=== PATIENT | female | born 1995 ===

== ENCOUNTER 2018-10-22 06:10 | Emergency (ER) | payer OTHER ==
--- NOTE | 2018-10-22 07:16 | ED PDOC ---
HPI: Abdomen Time Seen by Provider: 10/22/18 07:06 Chief Complaint (Nursing): Back Pain Chief Complaint (Provider): Back Pain History Per: Patient History/Exam Limitations: no limitations Onset/Duration Of Symptoms: Sudden Onset (x last night) Current Symptoms Are (Timing): Still Present Additional Complaint(s): 23 year old female presents to ED with left-sided flank pain associated with dysuria and nausea since last night. She denies any fever or chills. Of note, patient has pmHx of PCOS. PCP: none provided Past Medical History Reviewed: Historical Data, Nursing Documentation, Vital Signs Vital Signs: Last Vital Signs Temp 98.3 F 10/22/18 06:20 Pulse 85 10/22/18 06:20 Resp 18 10/22/18 06:20 BP 120/70 10/22/18 06:20 Pulse Ox 98 10/22/18 06:20 - Medical History Other PMH: polycystic ovary syndrome - Surgical History Surgical History: No Surg Hx - Family History Family History: States: Unknown Family Hx - Home Medications Home Medications: Ambulatory Orders Medication Instructions Recorded Naproxen [Naprosyn] 500 mg PO Q12H #20 tab 10/22/18 Sulfamethoxazole/Trimethoprim 1 tab PO BID #20 tab 10/22/18 [Bactrim DS 800 mg-160 mg] - Allergies Allergies/Adverse Reactions: Allergies Allergy/AdvReac Type Severity Reaction Status Date / Time Penicillins Allergy RASH Verified 10/22/18 06:20 Review of Systems ROS Statement: Except As Marked, All Systems Reviewed And Found Negative Constitutional: Negative for: Fever, Chills Gastrointestinal: Positive for: Nausea Genitourinary Female: Positive for: Dysuria Musculoskeletal: Positive for: Back Pain (left flank) Physical Exam - Reviewed Nursing Documentation Reviewed: Yes Vital Signs Reviewed: Yes - Physical Exam Appears: Positive for: No Acute Distress Head Exam: Positive for: ATRAUMATIC, NORMAL INSPECTION, NORMOCEPHALIC Skin: Positive for: Normal Color Eye Exam: Positive for: Normal appearance ENT: Positive for: Normal ENT Inspection Neck: Positive for: Normal Cardiovascular/Chest: Positive for: Regular Rate, Rhythm, Chest Non Tender Respiratory: Positive for: Normal Breath Sounds. Negative for: Respiratory Distress Gastrointestinal/Abdominal: Positive for: Normal Exam, Soft. Negative for: Tenderness, Mass Back: Positive for: Normal Inspection. Negative for: L CVA Tenderness, R CVA Tenderness Extremity: Positive for: Normal ROM Neurologic/Psych: Positive for: Alert, Oriented - ECG O2 Sat by Pulse Oximetry: 98 (RA) Pulse Ox Interpretation: Normal Medical Decision Making Medical Decision Making: Initial Impression: Left flank pain Initial Plan: Will obtain CT ABD/pelvis and urine. R/O kidney stone vs. UTI vs. pyelonephritis Time: 737 -- : (-) Time: 841 --CT ABD/pelvis FINDINGS: Images through lung bases appear clear. No definite radiodense urolithiasis or hydronephrosis is appreciated at either kidney. No definite perinephric reaction either. The bilateral kidneys appear normal in size and overall density. Ureters also appear normal in caliber. Urinary bladder is decompressed but smooth and thin walled. Further evaluation remaining abdominal pelvic viscera is limited due to lack of oral and intravenous contrast agents. There is no suspicious lesion appreciated in the liver or the spleen. No gross intrahepatic biliary dilatation identified. The stomach is collapsed. Gallbladder is mildly distended but otherwise unremarkable appearing. A few calcifications related to the left adrenal gland but no mass identified at either adrenal gland. The bowel does not appear obstructed and there is limited retained fecal material identified at the proximal and distal large-bowel segments. The appendix is normal. There are no suspicious adnexal findings. No suspicious lymphadenopathy in the abdomen or pelvis. No fracture or destructive lytic or blastic bony changes identified. OTHER FINDINGS: None. IMPRESSION: Unremarkable non contrast enhanced CT of the abdomen and pelvis, including the genitourinary tract. Declines pelvic US to r/o ovarian cyst, most likely passed kidney stone Scribe Attestation: Documented by Candis Gross, acting as a scribe for Salinas Fernandez MD. Provider Scribe Attestation: All medical record entries made by the Scribe were at my direction and personally dictated by me. I have reviewed the chart and agree that the record accurately reflects my personal performance of the history, physical exam, medical decision making, and the department course for this patient. I have also personally directed, reviewed, and agree with the discharge instructions and disposition. Disposition - Clinical Impression Clinical Impression: Kidney stone - Patient ED Disposition Is Patient to be Admitted: No - Disposition Referrals: Morgan Das Jr., MD [Staff Provider] - Disposition: Routine/Home Disposition Time: 08:55 Condition: FAIR Prescriptions: Naproxen [Naprosyn] 500 mg PO Q12H #20 tab Sulfamethoxazole/Trimethoprim [Bactrim DS 800 mg-160 mg] 1 tab PO BID #20 tab Instructions: Kidney Stones in Adults Forms: [facility] (Thai)
--- NOTE | 2018-10-22 08:46 | CT ---
Date of service: 10/22/2018 PROCEDURE: CT Abdomen and Pelvis without intravenous contrast HISTORY: r/o kidney stone COMPARISON: None. TECHNIQUE: Helical CT of the abdomen and pelvis was performed without oral or intravenous contrast as per referring physician request. Coronal and sagittal reformats were generated. Contrast dose: None Radiation dose: Total exam DLP = 726.33 mGy-cm. This CT exam was performed using one or more of the following dose reduction techniques: Automated exposure control, adjustment of the mA and/or kV according to patient size, and/or use of iterative reconstruction technique. FINDINGS: Images through lung bases appear clear. No definite radiodense urolithiasis or hydronephrosis is appreciated at either kidney. No definite perinephric reaction either. The bilateral kidneys appear normal in size and overall density. Ureters also appear normal in caliber. Urinary bladder is decompressed but smooth and thin walled. Further evaluation remaining abdominal pelvic viscera is limited due to lack of oral and intravenous contrast agents. There is no suspicious lesion appreciated in the liver or the spleen. No gross intrahepatic biliary dilatation identified. The stomach is collapsed. Gallbladder is mildly distended but otherwise unremarkable appearing. A few calcifications related to the left adrenal gland but no mass identified at either adrenal gland. The bowel does not appear obstructed and there is limited retained fecal material identified at the proximal and distal large-bowel segments. The appendix is normal. There are no suspicious adnexal findings. No suspicious lymphadenopathy in the abdomen or pelvis. No fracture or destructive lytic or blastic bony changes identified. OTHER FINDINGS: None. IMPRESSION: Unremarkable non contrast enhanced CT of the abdomen and pelvis, including the genitourinary tract.
[2018-10-22 09:11] VITALS: BP 110/78; PULSE 78; RESP 19; TEMP 97.5; O2SAT 97
== END 2018-10-22 09:11 | disposition home or self-care (01) ==
LOC: H.ER 06:10
DX: N20.0 Calculus of kidney (principal); E28.2 Polycystic ovarian syndrome; Z88.0 Allergy status to penicillin